=== PATIENT | female | born 1990 | race Two or more races ===

== ENCOUNTER 2023-04-28 05:15 | Day surgery (SDC) | payer OTHER ==
[2023-04-26 12:45] LABS: URINE APPEARANCE Clear; URINE BILIRRUBIN Negative (NEGATIVE); URINE BLOOD Negative; URINE COLOR Yellow; URINE GLUCOSE Negative (NEGATIVE); URINE LEUKOCYTE Negative; URINE NITRATE Negative; URINE PROTEIN Negative (NEGATIVE); URINE UROBILINOGEN 0.2 E.U./dl
[2023-04-26 12:46] LABS: URINE BACTERIA 49.1 uL (0.0-1933); URINE EPITHELIAL CELLS 1.6 uL (0.0-38.8)
[2023-04-26 12:48] LABS: HEMATOCRIT 36.6 % (36.0-45.00); HEMOGLOBIN 12.4 g/dL (12.0-15.00); MEAN CELL VOLUME 83.5 fL (80.00-100.00); MEAN CORPUSCULAR HEMOGLOBIN 28.2 pg (27.00-32.0); MEAN CORPUSCULAR HGB CONC 33.8 g/dl (32.0-36.0); PLATELET COUNT 383 K/uL (150-450); RED BLOOD COUNT 4.38 M/uL (4.00-6.00); RED CELL DISTRIBUTION WIDTH 14.3 % (11.5-14.5)
[2023-04-26 13:02] LABS: INR 1.03; PARTIAL THROMBOPLASTIN TIME 29.7 SECONDS (22.0-34.0); PROTHROMBIN TIME 10.8 SECONDS (9.0-11.5)
[2023-04-26 13:19] LABS: ALBUMIN 3.8 gm/dL (3.4-5.0); BILIRUBIN TOTAL 0.57 mg/dL (0.3-1.2); CALCIUM 9.4 mg/dL (8.5-10.1); CREATININE SERUM 0.65 mg/dL (0.55-1.02); GFR 106.31; GLOBULINA 4.3 G/DL (2.4-3.5); POTASSIUM 4.4 mEq/L (3.5-5.1); TOTAL PROTEIN 8.1 gm/dL (6.4-8.2)
[~2023-04-28] VITALS: Ht 160 cm; Wt 148.8 kg
[2023-04-28] MEDS ORDERED: POVIDONE-IODINE 118 ML BOTT TOP ONE (06:56)
[2023-04-28] MEDS ORDERED: BACITRACIN 28.35 GM OINT.TUBE TOP ONE (08:25)
[2023-04-28] MEDS ORDERED: POVIDONE-IODINE 118 ML BOTT TOP SCH (08:30)
[2023-04-28] MEDS ORDERED: KETOROLAC TROMETHAMINE 30 MG VIAL IU ONE (08:45)
[2023-04-28] MEDS ORDERED: KETOROLAC TROMETHAMINE 30 MG VIAL ONE (11:12)
== END 2023-04-28 13:40 | disposition home or self-care (01) ==
LOC: CIR.AMB 05:15
PROVIDERS: ATTEND Obstetrics & Gynecology
DX: N85.01 Benign endometrial hyperplasia (principal); N93.8 Other specified abnormal uterine and vaginal bleeding